=== PATIENT | female | born 1975 ===

== ENCOUNTER 2022-01-19 10:06 | Emergency (ER) | payer SELFPAY ==
[2022-01-19 10:12] VITALS: BP 114/81
== END 2022-01-19 13:19 | disposition left against medical advice (07) ==
LOC: ED 10:06
DX: M25.561 Pain in right knee (principal); Z53.21 Procedure and treatment not carried out due to patient leaving prior to being seen by health care provider; W18.39XA Other fall on same level, initial encounter; Y93.89 Activity, other specified; Y92.89 Other specified places as the place of occurrence of the external cause; Y99.8 Other external cause status